=== PATIENT | female | born 1985 | race Caucasian/White ===

== ENCOUNTER 2021-10-16 09:32 | Emergency (ER) | payer SELFPAY ==
[2021-10-16 10:25] VITALS: BP 115/57; PULSE 95; TEMP 98.7; BMI 23.0
== END 2021-10-16 12:46 | disposition home or self-care (01) ==
LOC: JER 09:32
DX: J06.9 Acute upper respiratory infection, unspecified (principal); R05.9 Cough, unspecified; R09.81 Nasal congestion
CPT/HCPCS: 71046-TC-FY; 87804; 99284-25; C9803; U0003; U0005